=== PATIENT | male | born 1950 | race Caucasian/White ===

== ENCOUNTER 2022-08-11 11:35 | Outpatient (CLI) | payer MEDICARE, OTHER, SELFPAY ==
--- NOTE | ~2022-08-11 | PE_ITS ---
EXAMINATION: PET_PETPSMAST_PT DATE: 08/11/2022 14:42 INDICATION: Prostate cancer. Elevated PSA. TECHNIQUE: 10.2 mCi of piflufolastat F-18 was administered intravenously. Low dose computed tomograph y (CT) images were acquired from the base of the brain to the proximal thighs for attenuation correct ion and anatomic localization. Automated exposure control was employed. Dose-length product (DLP) was 654 mGy-cm. Positron emission tomography (PET) images were acquired in the same distribution. COMPARISON: None FINDINGS: Head/neck: There are no pathologically enlarged lymph nodes. Chest: A calcified left lung nodule and calcified left hilar and mediastinal lymph nodes are consiste nt with old granulomatous disease. No pleural effusion. The heart size is normal. There are coronary artery calcifications. No pericardial effusion. Abdomen/pelvis/proximal thighs: The liver, gallbladder, pancreas, and adrenal glands are normal. Calc ifications in the spleen are consistent with old granulomatous disease. There are cysts in the kidney s measuring up to 4.1 cm on the left. The prostate is moderately enlarged. There is increased activit y in the peripheral zone on the right with maximum SUV of 16.7. There is a left inguinal hernia conta ining fat. There are no dilated loops of bowel. There are no pathologically enlarged lymph nodes. The re is no free intraperitoneal fluid. There are surgical clips in the scrotum. There is interbody fusi on at L3-L4. IMPRESSION: 1. Increased activity in the peripheral zone of the prostate on the right, consistent with primary ma lignancy. No evidence of metastatic disease. Reviewed, dictated and finalized at location A. IMPRESSION: 1. Increased activity in the peripheral zone of the prostate on the right, cons istent with primary malignancy. No evidence of metastatic disease.
== END 2022-08-11 11:36 | disposition home or self-care (01) ==
LOC: ANHIMG 11:46
PROVIDERS: Visit Provider Urology
DX: C61 Malignant neoplasm of prostate (principal); R97.20 Elevated prostate specific antigen [PSA]
CPT/HCPCS: 78815; A9595